=== PATIENT | male | born 1965 | race African-American/Black ===

== ENCOUNTER 2016-07-20 20:48 | Emergency (ER) | payer BC ==
[~2016-07-20] VITALS: Ht 188 cm; Wt 119.0 kg
[~2016-07-20 20:48] MED LIST: AMLO5TAB22 PO; IBUP-232 PO; LISI-360 PO; LISI10TA3 PO
[2016-07-20 20:50] VITALS: BP 199/108; PULSE 96; RESP 18; TEMP 97.9; O2SAT 96
[2016-07-20] MEDS ORDERED: MOBI15TA PO (21:29)
[2016-07-20] MEDS ORDERED: ROBA750T PO (21:29)
[2016-07-20] MEDS ORDERED: LISI10TA3 PO (21:29)
--- NOTE | 2016-07-20 21:29 | PD ---
HPI Chief Complaint: Back/ Neck Pain or Injury Time Seen by Provider: 21:16 Travel History International Travel<30 days: No Contact w/Intl Traveler<30days: No Traveled to known affect area: No History of Present Illness HPI 51-year-old male complains of intermittent neck pain and upper back pain. Patient states the pain started yesterday. Patient states that the pain is cramping pain intermittent pain localized to the neck and upper back area. Patient denies any pain radiation. Patient has been doing more heavy lifting recently. Patient denies any recent fall. Patient denies any coughing congestion. Patient denies any chest pain or shortness of breath. Patient denies any focal weakness and numbness of extremity. Patient has history hypertension. Patient was on lisinopril. Patient ran out of his blood pressure medication a month ago. Patient denies any headache. Patient denies any visual change. PFSH Past Medical History Heart Rhythm Problems: No Cardiac Catheterization: No Cardiovascular Problems: Yes (HTN) High Cholesterol: No Congestive Heart Failure: No Diabetes: No Diminished Hearing: No Hypertension: Yes Immunizations Current: Yes Influenza Vaccination: No Past Surgical History Surgical History: No Previous Surgery Coronary Artery Bypass Graft: No Social History Alcohol Use: Yes (RARELY) Tobacco Use: No Substance Use: No Allergies-Medications (Allergen,Severity, Reaction): Coded Allergies: *MDRO Multi-Drug Resistant Organism (Verified Adverse Reaction, Unknown, ) MRSA (leg wound) - 05/2014 Reported Meds & Prescriptions Reported Meds & Active Scripts Active Lisinopril 10 Mg Tab 10 Mg PO DAILY Review of Systems General / Constitutional: No: Fever Eyes: No: Visual changes HENT: No: Headaches Cardiovascular: No: Chest Pain or Discomfort Respiratory: No: Shortness of Breath Gastrointestinal: No: Abdominal Pain Genitourinary: No: Dysuria Musculoskeletal: Positive: Pain Skin: No Rash Neurologic: No: Weakness Psychiatric: No: Depression Endocrine: No: Polydipsia Hematologic/Lymphatic: No: Easy Bruising Physical Exam Narrative GENERAL: Well-nourished, well-developed patient. SKIN: Warm and dry. HEAD: Normocephalic. EYES: No scleral icterus. No injection or drainage. NECK: Supple, trachea midline. No JVD or lymphadenopathy. CARDIOVASCULAR: Regular rate and rhythm without murmurs, gallops, or rubs. RESPIRATORY: Breath sounds equal bilaterally. No accessory muscle use. GASTROINTESTINAL: Abdomen soft, non-tender, nondistended. MUSCULOSKELETAL: No cyanosis, or edema. BACK: Nontender without obvious deformity. No CVA tenderness. Neurologic exam normal. Data Data Last Documented VS Vital Signs Date Time Temp Pulse Resp B/P Pulse Ox O2 Delivery O2 Flow Rate FiO2 07/20/16 21:07 90 18 07/20/16 20:50 97.9 199/108 96 Room Air MDM Medical Decision Making Medical Screen Exam Complete: Yes Emergency Medical Condition: Yes Differential Diagnosis Differential diagnosis including muscular spasm, uncontrolled hypertension, hypertensive emergency, hypertensive crisis. Narrative Course 51-year-old male with intermittent neck and upper back pain. Patient's blood pressures elevated. Patient ran out of his blood pressure medication a month ago. Lisinopril 10 mg by mouth given. Motrin 600 mg by mouth given. Diagnosis Primary Impression: Musculoskeletal pain Additional Impression: Uncontrolled hypertension Patient Instructions: General Instructions Additional Instructions: Take medications as directed. Follow-up with personal physician. Return if worse. Med/Other Pt SpecificInfo: Prescription(s) given Scripts Methocarbamol (Robaxin)750 Mg Tap652 Mg PO QID #40 TAB Ref 0 Prov:Mic Oropeza MD 07/20/16 Meloxicam (Mobic)15 Mg Tab15 Mg PO DAILY #20 TAB Ref 0 Prov:Mic Oropeza MD 07/20/16 Lisinopril 10 Mg Tab10 Mg PO DAILY #30 TAB Ref 0 Prov:Mic Oropeza MD 07/20/16 Disposition: 01 DISCHARGE HOME Condition: Stable Mic Oropeza MD Jul 20, 2016 21:29
[2016-07-20] MEDS ORDERED: LISINOPRIL 10 MG TAB PO ONE (21:30)
[2016-07-20] MEDS ORDERED: IBUPROFEN 600 MG TAB PO ONE (21:30)
[2016-07-20 22:03] VITALS: BP 176/108
== END 2016-07-20 22:08 | disposition home or self-care (01) ==
LOC: NEPE 20:48
DX: M79.1 Myalgia (principal); I10 Essential (primary) hypertension; M54.89 Other dorsalgia
CPT/HCPCS: 99283

== ENCOUNTER 2017-02-21 20:06 | Emergency (ER) | payer BC ==
[~2017-02-21 20:06] MED LIST changes: -AMLO5TAB22 PO; -IBUP-232 PO; -LISI-360 PO; +MOBI15TA PO; +ROBA750T PO
[2017-02-21 20:07] VITALS: BP 183/90; PULSE 117; RESP 16; TEMP 97.9; O2SAT 100
[2017-02-21 22:14] VITALS: BP_SYST 178; BP_DIAS 110; BP_DIAS 112; PULSE 100; PULSE 109; RESP 18; O2SAT 99
[2017-02-21] MEDS ORDERED: ASPIRIN 325 MG TAB PO ONE (22:15)
--- NOTE | 2017-02-21 22:20 | PD ---
HPI . Chest pain, palpitation Chief Complaint: Cardiac Complaint Time Seen by Provider: 22:13 Travel History International Travel<30 days: No Contact w/Intl Traveler<30days: No Traveled to known affect area: No History of Present Illness HPI 51-year-old male patient presents to the emergency department for evaluation of chest pain and palpitations that started tonight around 7 PM. Patient states he was sitting on his brother's couch resting when the chest pain and palpitations started. Patient denies any major medical history except hypertension. Patient states he's been out of his hypertensive medication for a couple months now. Patient denies any shortness of breath, fever, chills, malaise, nausea, abdominal pain, vomiting, diarrhea, dysuria, hematuria or lightheadedness. Patient denies any history of irregular heart beats. Patient states there is nothing that exacerbates or relieves the chest pain and palpitations. The pain is not reproducible to palpation. PFSH Past Medical History Heart Rhythm Problems: No Cardiac Catheterization: No Cardiovascular Problems: Yes (HTN) High Cholesterol: No Congestive Heart Failure: No Diabetes: No Diminished Hearing: No Hypertension: Yes Immunizations Current: Yes ?: Not Past Surgical History Coronary Artery Bypass Graft: No Social History Alcohol Use: Yes (RARELY) Tobacco Use: No Substance Use: No Allergies-Medications (Allergen,Severity, Reaction): Coded Allergies: *MDRO Multi-Drug Resistant Organism (Verified Adverse Reaction, Unknown, ) MRSA (leg wound) - 05/2014 Reported Meds & Prescriptions Reported Meds & Active Scripts Active Lisinopril 10 Mg Tab 10 Mg PO DAILY Review of Systems Except as stated in HPI: all other systems reviewed are Neg Physical Exam Narrative GENERAL: Well-nourished well-developed obese 51-year-old -[place] male in no acute distress SKIN: Focused skin assessment warm/dry. HEAD: Atraumatic. Normocephalic. EYES: Pupils equal and round. No scleral icterus. No injection or drainage. ENT: No nasal bleeding or discharge. Mucous membranes pink and moist. NECK: Trachea midline. No JVD. CARDIOVASCULAR: Regular rate and rhythm. No murmur appreciated. RESPIRATORY: No accessory muscle use. Clear to auscultation. Breath sounds equal bilaterally. GASTROINTESTINAL: Abdomen soft, non-tender, nondistended. Hepatic and splenic margins not palpable. MUSCULOSKELETAL: No obvious deformities. No clubbing. No cyanosis. No edema. NEUROLOGICAL: Awake and alert. No obvious cranial nerve deficits. Motor grossly within normal limits. Normal speech. PSYCHIATRIC: Appropriate mood and affect; insight and judgment normal. Data Data Last Documented VS Vital Signs Date Time Temp Pulse Resp B/P (MAP) Pulse Ox O2 Delivery O2 Flow Rate FiO2 02/21/17 22:14 109 18 178/110 (132) 99 Room Air 02/21/17 20:07 97.9 Orders Orders Electrocardiogram (02/21/17 22:11) Basic Metabolic Panel (Bmp) (02/21/17 22:11) Complete Blood Count With Diff (02/21/17 22:11) Magnesium (Mg) (02/21/17 22:11) Prothrombin Time / Inr (Pt) (02/21/17 22:11) Act Partial Throm Time (Ptt) (02/21/17 22:11) Troponin I (02/21/17 22:11) Chest, Single Ap (02/21/17 22:11) Ecg Monitoring (02/21/17 22:11) Bilateral Bp Monitoring (02/21/17 22:11) Iv Access Insert/Monitor (02/21/17 22:11) Oximetry (02/21/17 22:11) Oxygen Administration (02/21/17 22:11) Aspirin (Aspirin) (02/21/17 22:15) MDM Medical Decision Making Medical Screen Exam Complete: Yes Emergency Medical Condition: Yes Medical Record Reviewed: Yes Differential Diagnosis Differential diagnoses include but not limited to ACS, electrolyte abnormality, palpitations, atrial fibrillation, anxiety Narrative Course Patient placed on monitor, IV obtained and blood work sent. CBC, BMP, magnesium , PT/INR, troponin ordered and pending. EKG, chest x-ray ordered and pending. Patient given 325 mg aspirin. My attending, Dr Cobos assumes care for this patient. Please see her documentation for further details and disposition. Rosette Sorenson Feb 21, 2017 22:20
--- NOTE | 2017-02-21 22:42 | RADRPT ---
EXAM DATE/TIME: 02/21/2017 22:15 [facility] COMPARISON: CHEST SINGLE AP, April 11, 2014, 0:50. INDICATIONS : Chest pain. MEDICAL HISTORY : Hypertension. SURGICAL HISTORY : None. ENCOUNTER: Initial ACUITY: 1 day PAIN SCORE: 2/10 LOCATION: Bilateral chest FINDINGS: There is mild bibasilar atelectasis. No pleural effusion or pneumothorax. Heart size stable, within n ormal limits. CONCLUSION: Mild bibasilar atelectasis. Santiago Horner MD on February 21, 2017 at 22:41 Board Certified Radiologist. This report was verified electronically.
[2017-02-21 23:19] VITALS: BP 151/98; PULSE 86; RESP 18; O2SAT 98
[2017-02-21 23:46] LABS: AUTOMATED NEUTROPHIL # 4.2 TH/MM3 (1.8-7.7); BASOPHIL # 0.1 TH/MM3 (0-0.2); BASOPHIL % 0.8 % (0.0-2.0); EOSINOPHIL # 0.1 TH/MM3 (0-0.4); EOSINOPHIL % 1.8 % (0.0-4.0); HEMATOCRIT 39.9 % (39.0-51.0); HEMO FLAGS DIFF FINAL; LYMPH % 32.1 % (9.0-44.0); LYMPHOCYTE # 2.4 TH/MM3 (1.0-4.8); MEAN CELL VOLUME 86.6 FL (80.0-100.0); MEAN CORPUSCULAR HEMOGLOBIN 28.4 PG (27.0-34.0); MEAN CORPUSCULAR HGB CONC 32.8 % (32.0-36.0); NEUT % 57.3 % (16.0-70.0); PLATELET COUNT 297 TH/MM3 (150-450); RED CELL DISTRIBUTION WIDTH 12.5 % (11.6-17.2); WHITE BLOOD COUNT 7.4 TH/MM3 (4.0-11.0)
[2017-02-21 23:55] LABS: APTT (PATIENT) 23.9 SEC (24.3-30.1); PROTHROMBIN TIME - PATIENT 10.7 SEC (9.8-11.6)
[2017-02-21 23:59] LABS: ANION GAP 6 MEQ/L (5-15); BICARBONATE 26.9 MEQ/L (21.0-32.0); BLOOD UREA NITROGEN 8 MG/DL (7-18); CHLORIDE 107 MEQ/L (98-107); GLOMERULAR FILTRATION RATE 74 ML/MIN (>89); MAGNESIUM 2.1 MG/DL (1.5-2.5); POTASSIUM 3.8 MEQ/L (3.5-5.1); SODIUM (NA) 140 MEQ/L (136-145)
--- NOTE | 2017-02-22 00:19 | PD ---
Data Data Last Documented VS Vital Signs Date Time Temp Pulse Resp B/P (MAP) Pulse Ox O2 Delivery O2 Flow Rate FiO2 02/21/17 23:19 86 18 151/98 (115) 98 Room Air 02/21/17 20:07 97.9 Orders Orders Electrocardiogram (02/21/17 22:11) Basic Metabolic Panel (Bmp) (02/21/17 22:11) Complete Blood Count With Diff (02/21/17 22:11) Magnesium (Mg) (02/21/17 22:11) Prothrombin Time / Inr (Pt) (02/21/17 22:11) Act Partial Throm Time (Ptt) (02/21/17 22:11) Troponin I (02/21/17 22:11) Chest, Single Ap (02/21/17 22:11) Ecg Monitoring (02/21/17 22:11) Bilateral Bp Monitoring (02/21/17 22:11) Iv Access Insert/Monitor (02/21/17 22:11) Oximetry (02/21/17 22:11) Oxygen Administration (02/21/17 22:11) Aspirin (Aspirin) (02/21/17 22:15) Labs Laboratory Tests Test 02/21/17 23:25 White Blood Count 7.4 TH/MM3 Red Blood Count 4.60 MIL/MM3 Hemoglobin 13.1 GM/DL Hematocrit 39.9 % Mean Corpuscular Volume 86.6 FL Mean Corpuscular Hemoglobin 28.4 PG Mean Corpuscular Hemoglobin Concent 32.8 % Red Cell Distribution Width 12.5 % Platelet Count 297 TH/MM3 Mean Platelet Volume 7.1 FL Neutrophils (%) (Auto) 57.3 % Lymphocytes (%) (Auto) 32.1 % Monocytes (%) (Auto) 8.0 % Eosinophils (%) (Auto) 1.8 % Basophils (%) (Auto) 0.8 % Neutrophils # (Auto) 4.2 TH/MM3 Lymphocytes # (Auto) 2.4 TH/MM3 Monocytes # (Auto) 0.6 TH/MM3 Eosinophils # (Auto) 0.1 TH/MM3 Basophils # (Auto) 0.1 TH/MM3 CBC Comment DIFF FINAL Differential Comment Prothrombin Time 10.7 SEC Prothromb Time International Ratio 1.0 RATIO Activated Partial Thromboplast Time 23.9 SEC Blood Urea Nitrogen 8 MG/DL Creatinine 1.25 MG/DL Random Glucose 98 MG/DL Calcium Level 8.9 MG/DL Magnesium Level 2.1 MG/DL Sodium Level 140 MEQ/L Potassium Level 3.8 MEQ/L Chloride Level 107 MEQ/L Carbon Dioxide Level 26.9 MEQ/L Anion Gap 6 MEQ/L Estimat Glomerular Filtration Rate 74 ML/MIN Troponin I LESS THAN 0.02 NG/ML MDM Supervised Visit with LOLIS: Yes Narrative Course The history, exam, and medical decision-making in the associated midlevel provider note were completed with my assistance. I reviewed and agree with the findings presented. I attest that I had a [id number] encounter with the patient on the same day, and personally performed and documented my assessment and findings in the medical record. *My assessment and Findings: This is a 51-year-old male who presents to the emergency department with palpitations and some discomfort in his left chest that started several hours prior to arrival. EKG demonstrates normal sinus rhythm with no ST changes. The patient reports that he had a normal stress test earlier this year when he was admitted overnight for observation at [facility] in the setting of similar symptoms. He does have a history of hypertension. The patient's initial troponin is normal. I had a long conversation with the patient. Initially I offered him observation in our chest pain center. He says he just had a workup similar to this that he didn't think it was necessary. I did offer him a repeat troponin in 3 hours. His heart score is 3 putting him in a low risk category. We discussed this. He expressed understanding that he has a 2% chance of heart attack or in the next 6 weeks. He felt comfortable following up with the primary care physician regarding this and he really wants to go to work tomorrow and doesn't want to wait to have repeat blood work drawn. I think this is reasonable given his symptoms are very atypical and he's had a recent inpatient cardiac workup. Diagnosis Primary Impression: Chest pain, atypical Patient Instructions: General Instructions Additional Instruction: If you develop severe chest pain, shortness of breath, sweating, lightheadedness , dizziness or difficulty breathing return to the emergency department immediately. Followup with your primary care physician in 2-3 days if your symptoms are not resolved. Med/Other Pt SpecificInfo: No Change to Meds Disposition: 01 DISCHARGE HOME Condition: Stable Chandni Cobos MD Feb 22, 2017 00:19
--- NOTE | 2017-02-22 08:28 | EKG ---
Date Performed: 02/21/2017 Time Performed: 23:08:51 PTAGE: 51 years EKG: Sinus rhythm NONSPECIFIC INTRAVENTRICULAR CONDUCTION DELAY NONSPECIFIC T-WAVE ABNORMALITY BORDERLINE ECG PREVIOUS TRACING : 05/20/2016 08.03 No significant change from previous tracing noted. DOCTOR: Marcio Mcgee Interpretating Date/Time 02/22/2017 08:26:58
== END 2017-02-22 01:03 | disposition home or self-care (01) ==
LOC: NEPC 20:06
DX: R07.89 Other chest pain (principal); I10 Essential (primary) hypertension
CPT/HCPCS: 71010; 80048; 83735; 84484; 85025; 85610; 85730; 93005; 99285

== ENCOUNTER 2017-04-20 16:10 | Emergency (ER) | payer BC ==
[~2017-04-20] VITALS: Ht 188 cm; Wt 120.0 kg
[~2017-04-20 16:10] MED LIST changes: -MOBI15TA PO; -ROBA750T PO
[2017-04-20 16:14] VITALS: BP 186/100; PULSE 125; RESP 18; TEMP 97.8; O2SAT 100
[2017-04-20] MEDS ORDERED: ASPIRIN 81 MG CHEW TAB PO ONE (16:30)
[2017-04-20] MEDS ORDERED: SODIUM CHLORID 0.9% 500 ML INJ 500 ML IV ONE (16:30)
[2017-04-20] MEDS ORDERED: SODIUM CHLORIDE 0.9% FLUSH 10 ML FLUSH IVF PRN (16:30)
[2017-04-20 16:40] VITALS: BP 156/87; PULSE 105; RESP 20; O2SAT 98
--- NOTE | 2017-04-20 17:12 | PD ---
Physical Exam Date Seen by Provider: Apr 20, 2017 Narrative Right-sided chest pain Data Data Last Documented VS Vital Signs Date Time Temp Pulse Resp B/P (MAP) Pulse Ox O2 Delivery O2 Flow Rate FiO2 04/20/17 16:40 105 20 156/87 (110) 98 Room Air 04/20/17 16:14 97.8 Orders Orders Electrocardiogram (04/20/17 16:30) Ckmb (Isoenzyme) Profile (04/20/17 16:30) Complete Blood Count With Diff (04/20/17 16:30) Comprehensive Metabolic Panel (04/20/17 16:30) Magnesium (Mg) (04/20/17 16:30) Prothrombin Time / Inr (Pt) (04/20/17 16:30) Act Partial Throm Time (Ptt) (04/20/17 16:30) Troponin I (04/20/17 16:30) Lipase (04/20/17 16:30) Chest, Single Ap (04/20/17 16:30) Ecg Monitoring (04/20/17 16:30) Bilateral Bp Monitoring (04/20/17 16:30) Iv Access Insert/Monitor (04/20/17 16:30) Oximetry (04/20/17 16:30) Oxygen Administration (04/20/17 16:30) Aspirin Chew (Aspirin Chew) (04/20/17 16:30) Sodium Chloride 0.9% Flush (Ns Flush) (04/20/17 16:30) Sodium Chlorid 0.9% 500 Ml Inj (Ns 500 M (04/20/17 16:30) MDM Supervised Visit with LOLIS: Yes Narrative Course I, Dr. Gregory, have reviewed the advance practice practitioner's documentation and am in agreement, met with the patient face to face, made the diagnosis, and the medical decision making was done by me. *My assessment and Findings: Patient is lying on the bed comfortably watching TV. He is rubbing the right side of his chest. He is in a normal sinus rhythm. His EKG has no acute ischemic changes. Please see Marshal Quinonez PA-C's note for results of laboratory and radiographic evaluation, ED course, final diagnosis and disposition Ángela Gregory MD Apr 20, 2017 17:12
--- NOTE | 2017-04-20 17:16 | RADRPT ---
EXAM DATE/TIME: 04/20/2017 16:41 [facility] COMPARISON: No previous studies available for comparison. INDICATIONS : Chest pain MEDICAL HISTORY : Hypertension. SURGICAL HISTORY : None. ENCOUNTER: Initial ACUITY: 1 day PAIN SCORE: 3/10 LOCATION: chest FINDINGS: A single view of the chest demonstrates the lungs to be symmetrically aerated without evidence of mas s, infiltrate or effusion. Mild basilar atelectasis similar to February 21. The cardiomediastinal c ontours are unremarkable. Osseous structures are intact. CONCLUSION: 1. Basilar atelectasis similar to February 21. No effusion or pneumothorax. Bora Leos MD on April 20, 2017 at 17:13 Board Certified Radiologist. This report was verified electronically.
[2017-04-20 17:25] LABS: AUTOMATED NEUTROPHIL # 3.1 TH/MM3 (1.8-7.7); BASOPHIL % 0.6 % (0.0-2.0); EOSINOPHIL # 0.2 TH/MM3 (0-0.4); EOSINOPHIL % 2.8 % (0.0-4.0); HEMATOCRIT 38.6 % (39.0-51.0); HEMO FLAGS DIFF FINAL; LYMPH % 48.7 % (9.0-44.0); LYMPHOCYTE # 3.9 TH/MM3 (1.0-4.8); MEAN CORPUSCULAR HEMOGLOBIN 28.9 PG (27.0-34.0); MEAN CORPUSCULAR HGB CONC 33.3 % (32.0-36.0); MONO % 8.9 % (0.0-8.0); PLATELET COUNT 305 TH/MM3 (150-450); RED BLOOD COUNT 4.43 MIL/MM3 (4.50-5.90); RED CELL DISTRIBUTION WIDTH 12.3 % (11.6-17.2); WHITE BLOOD COUNT 8.1 TH/MM3 (4.0-11.0)
[2017-04-20 17:36] LABS: APTT (PATIENT) 26.2 SEC (24.3-30.1)
--- NOTE | 2017-04-20 17:42 | PD ---
HPI Chief Complaint: Chest Pain Time Seen by Provider: 16:25 Travel History International Travel<30 days: No Contact w/Intl Traveler<30days: No Traveled to known affect area: No History of Present Illness HPI 51-year-old Afro-Turk[place] male presents to emergency department with episodic right shoulder/chest pain which started earlier today. He states these pains come on intermittently without specific causative movements or activities. He states they are sharp and crampy in nature. They're worse with certain movements. They are 8 out of 10 in pain intensity. They last approximately 10- 20 minutes and then resolved. Patient has no shortness of breath, cough, fever , numbness, tingling, nausea, vomiting, or other symptoms. Patient is supposed to be taking blood pressure medication, lisinopril 10 mg daily, but he has been out for a couple of months. Patient has a history of MRSA but has no known drug allergies. PFSH Past Medical History Heart Rhythm Problems: No Cardiac Catheterization: No Cardiovascular Problems: Yes (HTN) High Cholesterol: No Congestive Heart Failure: No Diabetes: No Diminished Hearing: No Hypertension: Yes Immunizations Current: Yes Tetanus Vaccination: < 5 Years Influenza Vaccination: No Past Surgical History Surgical History: No Previous Surgery Coronary Artery Bypass Graft: No Social History Alcohol Use: Yes (RARELY) Tobacco Use: No Substance Use: No Allergies-Medications (Allergen,Severity, Reaction): Coded Allergies: *MDRO Multi-Drug Resistant Organism (Verified Adverse Reaction, Unknown, ) MRSA (leg wound) - 05/2014 Reported Meds & Prescriptions Reported Meds & Active Scripts Active Lisinopril 10 Mg Tab 10 Mg PO DAILY Lisinopril 10 Mg Tab 10 Mg PO DAILY Review of Systems Except as stated in HPI: all other systems reviewed are Neg General / Constitutional: No: Fever Eyes: No: Visual changes HENT: No: Headaches Cardiovascular: Positive: Chest Pain or Discomfort (history of present illness) , No: Palpitations, Irregular Rhythm, Tachycardia, Diaphoresis, Syncope, Dyspnea on exertion Respiratory: No: Cough, Shortness of Breath Gastrointestinal: No: Nausea, Vomiting, Diarrhea, Abdominal Pain Genitourinary: No: Dysuria Musculoskeletal: No: Pain Skin: No Rash Neurologic: No: Weakness Psychiatric: No: Depression Endocrine: No: Polydipsia Hematologic/Lymphatic: No: Easy Bruising Physical Exam Narrative GENERAL: Patient appears acute distress. He states he is currently pain-free. SKIN: Warm and dry. Normal color. Normal turgor. No signs of trauma. HEAD: Atraumatic. Normocephalic. EYES: Pupils equal and round. No scleral icterus. No injection or drainage. ENT: No nasal bleeding or discharge. Mucous membranes pink and moist. Pharynx is clear. Airway is patent. NECK: Trachea midline. No bony tenderness or step-off. Range of motion is full and without tenderness. CARDIOVASCULAR: Regular rate and rhythm. No murmurs gallops or rubs. RESPIRATORY: No accessory muscle use. Clear to auscultation. Breath sounds equal bilaterally. GASTROINTESTINAL: Abdomen soft, non-tender, nondistended. Hepatic and splenic margins not palpable. MUSCULOSKELETAL: Extremities without clubbing, cyanosis, or edema. No obvious deformities. NEUROLOGICAL: Awake and alert. No obvious cranial nerve deficits. Motor grossly within normal limits. Five out of 5 muscle strength in the arms and legs. Normal speech. PSYCHIATRIC: Appropriate mood and affect; insight and judgment normal. Data Data Last Documented VS Vital Signs Date Time Temp Pulse Resp B/P (MAP) Pulse Ox O2 Delivery O2 Flow Rate FiO2 04/20/17 16:40 105 20 156/87 (110) 98 Room Air 04/20/17 16:14 97.8 Orders Orders Electrocardiogram (04/20/17 16:30) Ckmb (Isoenzyme) Profile (04/20/17 16:30) Complete Blood Count With Diff (04/20/17 16:30) Comprehensive Metabolic Panel (04/20/17 16:30) Magnesium (Mg) (04/20/17 16:30) Prothrombin Time / Inr (Pt) (04/20/17 16:30) Act Partial Throm Time (Ptt) (04/20/17 16:30) Troponin I (04/20/17 16:30) Lipase (04/20/17 16:30) Chest, Single Ap (04/20/17 16:30) Ecg Monitoring (04/20/17 16:30) Bilateral Bp Monitoring (04/20/17 16:30) Iv Access Insert/Monitor (04/20/17 16:30) Oximetry (04/20/17 16:30) Oxygen Administration (04/20/17 16:30) Aspirin Chew (Aspirin Chew) (04/20/17 16:30) Sodium Chloride 0.9% Flush (Ns Flush) (04/20/17 16:30) Sodium Chlorid 0.9% 500 Ml Inj (Ns 500 M (04/20/17 16:30) CKMB (04/20/17 16:45) CKMB% (04/20/17 16:45) Labs Laboratory Tests Test 04/20/17 16:45 White Blood Count 8.1 TH/MM3 Red Blood Count 4.43 MIL/MM3 Hemoglobin 12.8 GM/DL Hematocrit 38.6 % Mean Corpuscular Volume 87.0 FL Mean Corpuscular Hemoglobin 28.9 PG Mean Corpuscular Hemoglobin Concent 33.3 % Red Cell Distribution Width 12.3 % Platelet Count 305 TH/MM3 Mean Platelet Volume 7.3 FL Neutrophils (%) (Auto) 39.0 % Lymphocytes (%) (Auto) 48.7 % Monocytes (%) (Auto) 8.9 % Eosinophils (%) (Auto) 2.8 % Basophils (%) (Auto) 0.6 % Neutrophils # (Auto) 3.1 TH/MM3 Lymphocytes # (Auto) 3.9 TH/MM3 Monocytes # (Auto) 0.7 TH/MM3 Eosinophils # (Auto) 0.2 TH/MM3 Basophils # (Auto) 0.0 TH/MM3 CBC Comment DIFF FINAL Differential Comment Prothrombin Time 11.0 SEC Prothromb Time International Ratio 1.0 RATIO Activated Partial Thromboplast Time 26.2 SEC Blood Urea Nitrogen 9 MG/DL Creatinine 1.14 MG/DL Random Glucose 86 MG/DL Total Protein 8.2 GM/DL Albumin 3.8 GM/DL Calcium Level 8.8 MG/DL Magnesium Level 1.7 MG/DL Alkaline Phosphatase 92 U/L Aspartate Amino Transf (AST/SGOT) 36 U/L Alanine Aminotransferase (ALT/SGPT) 41 U/L Total Bilirubin 1.4 MG/DL Sodium Level 140 MEQ/L Potassium Level 3.7 MEQ/L Chloride Level 105 MEQ/L Carbon Dioxide Level 25.0 MEQ/L Anion Gap 10 MEQ/L Estimat Glomerular Filtration Rate 82 ML/MIN Total Creatine Kinase 666 U/L Troponin I LESS THAN 0.02 NG/ML Lipase 137 U/L MDM Medical Decision Making Medical Screen Exam Complete: Yes Emergency Medical Condition: Yes Medical Record Reviewed: Yes Differential Diagnosis Atypical chest pain. Muscle spasm. Cardiac syndrome. Narrative Course Patient is medically stable at time of exam. EKG is performed showing sinus tachycardia with a rate of 104. No specific ST changes are noted. Is reviewed with Dr. Prieto's Labs ordered including CBC, CMP, cardiac panel. Chest x-ray is ordered. Chest x-ray shows no acute process compared to January 2017. CBC is unremarkable except for mild anemia with hemoglobin of 12.8. This is typical for the patient compared to past labs. CMP CMP is unremarkable except for a creatinine kinase of 666, troponin is less than 0.02. Patient is discussed with Dr. Gregory, and it is felt the patient is stable for discharge with atypical chest pain. Refill of his lisinopril 10 mg is given. The patient is recommended to follow-up with local primary care physician as needed. Patient can return if symptoms worsen as needed. Diagnosis Primary Impression: Chest pain, atypical Additional Impression: Uncontrolled hypertension Referrals: [facility] Patient Instructions: Chest Pain (ED), General Instructions Additional Instructions: Patient is discussed with Dr. Gregory, and it is felt the patient is stable for discharge with atypical chest pain. Refill of his lisinopril 10 mg is given. The patient is recommended to follow-up with local primary care physician as needed. Patient can return if symptoms worsen as needed. Med/Other Pt SpecificInfo: Prescription(s) given Scripts Lisinopril (Lisinopril) 10 Mg Tab 10 MG PO DAILY, #30 TAB 2 Refills Prov: Ángela Gregory MD 04/20/17 Disposition: 01 DISCHARGE HOME Condition: Stable Honorio Quinonez Apr 20, 2017 17:42
[2017-04-20 17:53] LABS: ANION GAP 10 MEQ/L (5-15); AST (GOT) 36 U/L (15-37); BLOOD UREA NITROGEN 9 MG/DL (7-18); CHLORIDE 105 MEQ/L (98-107); GLOMERULAR FILTRATION RATE 82 ML/MIN (>89); MAGNESIUM 1.7 MG/DL (1.5-2.5); POTASSIUM 3.7 MEQ/L (3.5-5.1); SODIUM (NA) 140 MEQ/L (136-145)
[2017-04-20 17:54] LABS: ALT (GPT) 41 U/L (12-78)
[2017-04-20 17:58] LABS: ALKALINE PHOSPHATASE 92 U/L (45-117); CREATINE KINASE 666 U/L (39-308); TOTAL BILIRUBIN ADULT 1.4 MG/DL (0.2-1.0)
[2017-04-20] MEDS ORDERED: LISI10TA3 PO (18:07)
[2017-04-20 18:10] LABS: CKMB 4.2 NG/ML (0.5-3.6)
[2017-04-20 19:13] VITALS: BP 186/92
--- NOTE | 2017-04-21 07:09 | EKG ---
Date Performed: 04/20/2017 Time Performed: 16:31:43 PTAGE: 51 years EKG: SINUS TACHYCARDIA POSSIBLE LEFT ATRIAL ENLARGEMENT NONSPECIFIC T-WAVE ABNORMALITY ABNORMAL RHYTHM ECG NO PREVIOUS TRACING DOCTOR: Marcio Mcgee Interpretating Date/Time 04/21/2017 07:07:45
== END 2017-04-20 19:13 | disposition home or self-care (01) ==
LOC: NEPC 16:10
DX: R07.9 Chest pain, unspecified (principal); I10 Essential (primary) hypertension
CPT/HCPCS: 71010; 80053; 82550; 82552; 83690; 83735; 84484; 85025; 85610; 85730; 93005; 99285; J7040

== ENCOUNTER 2017-04-21 21:23 | Emergency (ER) | payer BC ==
[~2017-04-21] VITALS: Ht 188 cm; Wt 120.0 kg
[2017-04-21 21:23] VITALS: BP 167/110; PULSE 73; RESP 16; TEMP 97.7; O2SAT 99
--- NOTE | 2017-04-22 00:18 | PD ---
HPI Chief Complaint: Pain: Acute or Chronic Time Seen by Provider: 00:02 Travel History International Travel<30 days: No Contact w/Intl Traveler<30days: No Traveled to known affect area: No History of Present Illness HPI 51-year-old male complains of persistent pain bilateral shoulder and anterior chest wall and upper back. Patient states that the symptoms started yesterday. Patient was seen in emergency room yesterday and worked up including chest x- ray EKG and cardiac enzymes were normal. Patient had mild elevation of CPK level. Patient was advised to follow local physician. Patient states that the pain has persisted since then and requesting to be rechecked. Patient states the pain spasm type of pain bilateral anterior chest wall area, bilateral shoulder pads area and upper back area. Patient states that the pain is intermittent and spasm type of pain. Patient denies any pain radiation. Patient states that the pain is not worse with exertion. Patient denies any history of CAD. Patient has history hypertension. Patient denies history of diabetes, hyperlipidemia. Patient is a nonsmoker. Patient denies any fever chills. Patient denies any illicit drug abuse. PFSH Past Medical History Heart Rhythm Problems: No Cardiac Catheterization: No Cardiovascular Problems: Yes (HTN) High Cholesterol: No Congestive Heart Failure: No Diabetes: No Patient Takes Glucophage: No Diminished Hearing: No Hypertension: Yes Immunizations Current: Yes Tetanus Vaccination: < 5 Years Influenza Vaccination: No Past Surgical History Surgical History: No Previous Surgery Coronary Artery Bypass Graft: No Social History Alcohol Use: Yes (RARELY) Tobacco Use: No Substance Use: No Allergies-Medications (Allergen,Severity, Reaction): Coded Allergies: *MDRO Multi-Drug Resistant Organism (Verified Adverse Reaction, Unknown, 04/21/17) MRSA (leg wound) - 05/2014 Reported Meds & Prescriptions Reported Meds & Active Scripts Active Lisinopril 10 Mg Tab 10 Mg PO DAILY Review of Systems General / Constitutional: No: Fever Eyes: No: Visual changes HENT: No: Headaches Cardiovascular: Positive: Chest Pain or Discomfort Respiratory: No: Shortness of Breath Gastrointestinal: No: Abdominal Pain Genitourinary: No: Dysuria Musculoskeletal: Positive: Pain Skin: No Rash Neurologic: No: Weakness Psychiatric: No: Depression Endocrine: No: Polydipsia Hematologic/Lymphatic: No: Easy Bruising Physical Exam Narrative GENERAL: Well-nourished, well-developed patient. SKIN: Focused skin assessment warm/dry. HEAD: Normocephalic. EYES: No scleral icterus. No injection or drainage. NECK: Supple, trachea midline. No JVD or lymphadenopathy. CARDIOVASCULAR: Regular rate and rhythm without murmurs, gallops, or rubs. RESPIRATORY: Breath sounds equal bilaterally. No accessory muscle use. GASTROINTESTINAL: Abdomen soft, non-tender, nondistended. MUSCULOSKELETAL: No cyanosis, or edema. Patient had mild diffuse tenderness anterior chest wall area, showed a pad area, upper back area. No redness swelling no deformity noted. Full range of motion upper extremity. BACK: Nontender without obvious deformity. No CVA tenderness. Neurologic exam normal. Data Data Last Documented VS Vital Signs Date Time Temp Pulse Resp B/P (MAP) Pulse Ox O2 Delivery O2 Flow Rate FiO2 04/21/17 21:23 97.7 73 16 167/110 (129) 99 Room Air Orders Orders Electrocardiogram (04/22/17 00:14) Basic Metabolic Panel (Bmp) (04/22/17 00:14) Creatine Kinase (Cpk) (04/22/17 00:14) Troponin I (04/22/17 00:14) Iv Access Insert/Monitor (04/22/17 00:14) CKMB (04/22/17 00:58) CKMB% (04/22/17 00:58) Labs Laboratory Tests Test 04/22/17 00:58 Blood Urea Nitrogen 10 MG/DL Creatinine 1.11 MG/DL Random Glucose 93 MG/DL Calcium Level 9.0 MG/DL Sodium Level 140 MEQ/L Potassium Level 4.4 MEQ/L Chloride Level 107 MEQ/L Carbon Dioxide Level 29.2 MEQ/L Anion Gap 4 MEQ/L Estimat Glomerular Filtration Rate 85 ML/MIN Total Creatine Kinase 507 U/L Creatine Kinase MB 3.3 NG/ML Creatine Kinase MB % 0.7 % Troponin I LESS THAN 0.02 NG/ML MDM Medical Decision Making Medical Screen Exam Complete: Yes Emergency Medical Condition: Yes Interpretation(s) 2:54 AM. CMP within normal limit. Total CK 507. Troponin negative. Differential Diagnosis Differential diagnosis including musculoskeletal, angina, VT, PE, pneumothorax. Narrative Course 51-year-old male with muscular pain chest wall, shoulder pad, upper back. Diagnosis Primary Impression: Muscle strain Patient Instructions: General Instructions Additional Instructions: Mobic As needed for pain. Follow-up with personal physician. Return if persistent problem or worse. Med/Other Pt SpecificInfo: Prescription(s) given Scripts Meloxicam (Mobic) 15 Mg Tab 15 MG PO DAILY for Pain, #20 TAB 0 Refills Prov: Mic Oropeza MD 04/22/17 Disposition: 01 DISCHARGE HOME Condition: Stable Mic Oropeza MD Apr 22, 2017 00:18
[2017-04-22 01:52] LABS: ANION GAP 4 MEQ/L (5-15); BICARBONATE 29.2 MEQ/L (21.0-32.0); BLOOD UREA NITROGEN 10 MG/DL (7-18); CHLORIDE 107 MEQ/L (98-107); CREATINE KINASE 507 U/L (39-308); GLOMERULAR FILTRATION RATE 85 ML/MIN (>89); POTASSIUM 4.4 MEQ/L (3.5-5.1); SODIUM (NA) 140 MEQ/L (136-145)
[2017-04-22 02:04] LABS: CKMB 3.3 NG/ML (0.5-3.6)
[2017-04-22] MEDS ORDERED: MOBI15TA PO (02:58)
--- NOTE | 2017-04-22 17:06 | EKG ---
Date Performed: 04/22/2017 Time Performed: 01:12:00 PTAGE: 51 years EKG: Sinus rhythm NONSPECIFIC T-WAVE ABNORMALITY When compared to previous tracing, the patient is no longer Tachycard ic. BORDERLINE ECG PREVIOUS TRACING : 04/20/2017 16.31 DOCTOR: India Billingsley Interpretating Date/Time 04/22/2017 17:06:00
== END 2017-04-22 03:11 | disposition home or self-care (01) ==
LOC: NEPC 21:23
DX: S29.011A Strain of muscle and tendon of front wall of thorax, initial encounter (principal); S29.012A Strain of muscle and tendon of back wall of thorax, initial encounter; S46.912A Strain of unspecified muscle, fascia and tendon at shoulder and upper arm level, left arm, initial encounter; S46.911A Strain of unspecified muscle, fascia and tendon at shoulder and upper arm level, right arm, initial encounter; R94.31 Abnormal electrocardiogram [ECG] [EKG]; R00.0 Tachycardia, unspecified; I10 Essential (primary) hypertension; Z79.899 Other long term (current) drug therapy; X58.XXXA Exposure to other specified factors, initial encounter
CPT/HCPCS: 80048; 82550; 82552; 84484; 93005; 99284

== ENCOUNTER 2017-05-25 22:59 | Emergency (ER) | payer BC ==
[~2017-05-25] VITALS: Ht 188 cm; Wt 115.0 kg
[2017-05-25 22:59] VITALS: BP 207/108; PULSE 106; RESP 16; TEMP 96.7; O2SAT 98
[~2017-05-25 22:59] MED LIST changes: +MOBI15TA PO
--- NOTE | 2017-05-26 01:00 | PD ---
HPI Chief Complaint: Skin Problem Time Seen by Provider: 00:39 Travel History International Travel<30 days: No Contact w/Intl Traveler<30days: No Traveled to known affect area: No History of Present Illness HPI 51-year-old male complains of pain swelling right third finger. Patient states that the symptoms started several days ago. Patient denies any injury to the right third finger. Patient denies any history of gout, rheumatoid arthritis or lupus. Patient states that the pain is sharp pain localized to the PIP joint of the right third finger. Patient states that he has increasing swelling of the right third finger. Patient is up-to-date with TD booster. Patient denies any fever chills. PFSH Past Medical History Heart Rhythm Problems: No Cardiac Catheterization: No Cardiovascular Problems: Yes (HTN) High Cholesterol: No Congestive Heart Failure: No Diabetes: No Diminished Hearing: No Hypertension: Yes Immunizations Current: Yes Tetanus Vaccination: < 5 Years Influenza Vaccination: No Past Surgical History Surgical History: No Previous Surgery Coronary Artery Bypass Graft: No Social History Alcohol Use: Yes (RARELY) Tobacco Use: No Substance Use: No Allergies-Medications (Allergen,Severity, Reaction): Coded Allergies: No Known Allergies (Unverified , 05/25/17) Reported Meds & Prescriptions Reported Meds & Active Scripts Active Mobic (Meloxicam) 15 Mg Tab 15 Mg PO DAILY Lisinopril 10 Mg Tab 10 Mg PO DAILY Review of Systems General / Constitutional: No: Fever Eyes: No: Visual changes HENT: No: Headaches Cardiovascular: No: Chest Pain or Discomfort Respiratory: No: Shortness of Breath Gastrointestinal: No: Abdominal Pain Genitourinary: No: Dysuria Musculoskeletal: Positive: Pain Skin: No Rash Neurologic: No: Weakness Psychiatric: No: Depression Endocrine: No: Polydipsia Hematologic/Lymphatic: No: Easy Bruising Physical Exam Narrative GENERAL: Well-nourished, well-developed patient. SKIN: Focused skin assessment warm/dry. HEAD: Normocephalic. EYES: No scleral icterus. No injection or drainage. NECK: Supple, trachea midline. No JVD or lymphadenopathy. CARDIOVASCULAR: Regular rate and rhythm without murmurs, gallops, or rubs. RESPIRATORY: Breath sounds equal bilaterally. No accessory muscle use. GASTROINTESTINAL: Abdomen soft, non-tender, nondistended. MUSCULOSKELETAL: No cyanosis, or edema. BACK: Nontender without obvious deformity. No CVA tenderness. Patient had tenderness and swelling PIP joint right third finger with decreasing range of motion right third finger. Minimal flexion-extension range of motion on the right third finger PIP joint. The redness swelling more to the radial aspect of the right third finger. No tenderness on palpation of the flexor tendon of the right third finger. Data Data Last Documented VS Vital Signs Date Time Temp Pulse Resp B/P (MAP) Pulse Ox O2 Delivery O2 Flow Rate FiO2 05/25/17 22:59 96.7 106 16 207/108 (141) 98 Room Air Orders Orders Finger ([id number]) (05/26/17 00:45) MDM Medical Decision Making Medical Screen Exam Complete: Yes Emergency Medical Condition: Yes Interpretation(s) Last Impressions Finger X-Ray 05/26/175 Signed Impressions: Service Date/Time: Friday, May 26, 2017 00:49 - CONCLUSION: Arthropathy involving the PIP joint. No fracture or dislocation. Jean-Claude Carlin Jr., MD Differential Diagnosis Differential diagnosis including osteoarthritis, gouty arthritis, cellulitis, tendinitis, septic joint. Narrative Course 51-year-old male with pain swelling right third finger PIP joint. Nontraumatic. X-ray of the right third finger shows arthritic changes. Decadron 8 mg IM. Clindamycin 300 mg by mouth. Diagnosis Primary Impression: Cellulitis of finger of right hand Additional Impression: Arthralgia of hand, right Patient Instructions: General Instructions Additional Instructions: Take medication as directed. Return in 2 days for recheck. Sooner if increasing redness swelling. Med/Other Pt SpecificInfo: Prescription(s) given Scripts Clindamycin (Clindamycin) 150 Mg Cap 300 MG PO QID for Infection, #80 CAP 0 Refills Prov: Mic Oropeza MD 05/26/17 Meloxicam (Mobic) 15 Mg Tab 15 MG PO DAILY for Pain, #20 TAB 0 Refills Prov: Mic Oropeza MD 05/26/17 Disposition: 01 DISCHARGE HOME Condition: Stable Mic Oropeza MD May 26, 2017 01:00
--- NOTE | 2017-05-26 01:12 | RADRPT ---
EXAM DATE/TIME: 05/26/2017 00:49 [facility] COMPARISON: No previous studies available for comparison. INDICATIONS : Right hand, third digit joint pain, no known injury. MEDICAL HISTORY : Hypertension. SURGICAL HISTORY : None. ENCOUNTER: Initial ACUITY: 1 day PAIN SCORE: 7/10 LOCATION: Right hand, third digit FINDINGS: 3 views of the right third digit show joint space narrowing with osteophyte production involving the PIP joint. No erosions. No fracture or dislocation. Soft tissue swelling is seen surrounding the join t. CONCLUSION: Arthropathy involving the PIP joint. No fracture or dislocation. Jean-Claude Carlin Jr., MD on May 26, 2017 at 1:08 Board Certified Radiologist. This report was verified electronically.
[2017-05-26] MEDS ORDERED: MOBI15TA PO (01:43)
[2017-05-26] MEDS ORDERED: CLIN150C14 PO (01:43)
[2017-05-26] MEDS ORDERED: CLINDAMYCIN 150 MG CAP PO ONE (01:45)
[2017-05-26] MEDS ORDERED: DEXAMETHASONE SOD PHOS 4 MG/ML VIAL IM ONE (01:45)
== END 2017-05-26 02:36 | disposition home or self-care (01) ==
LOC: NEPE 22:59
DX: L03.011 Cellulitis of right finger (principal); M25.541 Pain in joints of right hand; I10 Essential (primary) hypertension
CPT/HCPCS: 73140; 96372; 99284; J1100